=== PATIENT | male | born 1990 | race Caucasian/White ===

== ENCOUNTER 2021-01-03 09:53 | Emergency (ER) | payer OTHER ==
[~2021-01-03] VITALS: Ht 182.9 cm; Wt 72.6 kg
== END 2021-01-03 11:24 | disposition home or self-care (01) ==
LOC: ED 09:53
DX: S43.401A Unspecified sprain of right shoulder joint, initial encounter (principal); W22.8XXA Striking against or struck by other objects, initial encounter; F17.200 Nicotine dependence, unspecified, uncomplicated
CPT/HCPCS: 73030; 99283-25

== ENCOUNTER 2023-11-23 19:16 | Emergency (ER) | payer BC ==
[~2023-11-23] VITALS: Ht 182.9 cm; Wt 70.0 kg
[2023-11-23 19:35] LABS: BASOPHILS 0.4 % (0-2); EOSINOPHILS 0.4 % (0-6); HEMATOCRIT 43.3 % (35.0-50.0); HEMOGLOBIN 14.7 g/dL (12.0-18.0); LYMPHOCYTES 21.7 % (24-44); MCH 29.8 (27-36); MCHC 34.1 g/dl (30-36); MCV 87.4 fl (81-99); MONOCYTES 5.7 % (0-12); NEUTROPHILS 71.8 % (39-80); PLATELET COUNT 229 K/uL (140-440); RBC 4.95 M/ul (4.3-5.7); RDW 13.3 (10.5-15.0)
[2023-11-23 19:58] LABS: ALBUMIN 4.1 g/dL (3.4-5.0); ALBUMIN/GLOBULIN RATIO 1.11 (1.1-2.4); ALKALINE PHOSPHATASE 76 U/L (46-116); ALT (SGPT) 19 U/L (14-59); ANION GAP 16.7 (7-21); AST (SGOT) 20 U/L (15-37); BILIRUBIN, TOTAL 0.4 ng/dL (0.2-1.0); BUN/CREATININE RATIO 12.14 (6.0-28.6); CALCIUM 9.1 mg/dL (8.5-10.1); CARBON DIOXIDE 27 mmol/L (21-32); CHLORIDE 103 mmol/L (98-107); CREATININE, SERUM 1.07 mg/dL (0.70-1.30); GLOMERULAR FILTRATION RATE,EST 95 mL/min (>60); MAGNESIUM 1.8 mg/dL (1.8-2.4); POTASSIUM 3.7 mmol/L (3.5-5.1); PROTEIN, TOTAL 7.8 g/dL (6.4-8.2); TSH, 3RD GENERATION 1.331 uIU/mL (0.358-3.740); UREA NITROGEN 13 mg/dL (7-18)
[2023-11-23 21:22] LABS: BILIRUBIN, URINE NEGATIVE (negative); BLOOD/HGB, URINE NEGATIVE (Negative); KETONE, URINE NEGATIVE (Negative); LEUK ESTERASE, URINE NEGATIVE (negative); NITRITE, URINE NEGATIVE (negative); PH, URINE 7.5 (5-7)
[2023-11-23 21:36] LABS: AMPHETAMINES, URINE NEGATIVE (NEGATIVE); BARBITURATES, URINE NEGATIVE (NEGATIVE); BENZODIAZEPINE, URINE NEGATIVE (NEGATIVE); BUPRENORPHINE, URINE NEGATIVE (NEGATIVE); CANNABINOID, URINE NEGATIVE (NEGATIVE); COCAINE, URINE NEGATIVE (NEGATIVE); ECSTASY, URINE NEGATIVE (NEGATIVE); FENTANYL, URINE NEGATIVE (NEGATIVE); METHADONE, URINE NEGATIVE (NEGATIVE); OPIATES, URINE NEGATIVE (NEGATIVE); OXYCODONE, URINE NEGATIVE (NEGATIVE); PHENCYCLIDINE, URINE NEGATIVE (NEGATIVE)
[2023-11-23 22:00] VITALS: BP 133/83
--- NOTE | 2023-11-25 20:08 | EKG ---
[facility] [address] [facility] [address] [place] [address] Signed Sinus tachycardia Right atrial enlargement Rightward axis Incomplete right bundle branch block Borderline ECG No previous ECGs available Confirmed by Dorothy Villalta MD () on 11/25/2023 8:08:39 PM Electronically Signed By: DOROTHY VILLALTA MD 11/25/232007 PATIENT NAME: CHOIYASMIN Electrocardiogram DATE OF : [birth year] PHYSICIAN: DOROTHY VILLALTA MD REPORT #: [id number] REPORT IS CONFIDENTIAL AND NOT TO BE RELEASED WITHOUT AUTHORIZATION
--- NOTE | 2023-11-25 20:09 | EKG ---
[facility] [address] [place] [address] Signed Normal sinus rhythm Incomplete right bundle branch block Borderline ECG When compared with ECG of 23-NOV-2023 19:20, Vent. rate has decreased Confirmed by Dorothy Villalta MD () on 11/25/2023 8:09:19 PM Electronically Signed By: DOROTHY VILLALTA MD 11/25/232008 PATIENT NAME: YASMIN CHOI Electrocardiogram DATE OF : [birth year] PHYSICIAN: DOROTHY VILLALTA MD REPORT #: [id number] REPORT IS CONFIDENTIAL AND NOT TO BE RELEASED WITHOUT AUTHORIZATION
[2023-11-26 14:48] LABS: THYROXINE 5.36 ug/dL (4.50-11.70)
== END 2023-11-23 22:00 | disposition home or self-care (01) ==
LOC: ED 19:16
PROVIDERS: Internal Medicine
DX: F43.9 Reaction to severe stress, unspecified (principal); F17.200 Nicotine dependence, unspecified, uncomplicated; Z88.8 Allergy status to other drugs, medicaments and biological substances
CPT/HCPCS: 36415; 80053; 80307; 81003; 83735; 84436; 84443; 84484; 85025; 93005; 93010; 99285-25